=== PATIENT | female | born 1960 | race African-American/Black ===

== ENCOUNTER 2016-11-10 17:56 | Emergency (ER) | payer OTHER ==
[~2016-11-10] VITALS: Ht 160 cm; Wt 90.7 kg
[2016-11-10 18:07] VITALS: BP 146/87
[2016-11-10] MEDS ORDERED: Famotidine 20 MG/ 2ML VIAL IVP ONE (18:15)
[2016-11-10] MEDS ORDERED: Ketorolac 30mg Inj IV ONE (18:15)
[2016-11-10 18:38] LABS: BASOPHILS % (AUTO) 0.9 % (0.0-2.0); EOSINOPHILS % (AUTO) 1.3 % (0.0-3.0); LYMPHOCYTES % (AUTO) 28.7 % (20.0-45.0); MEAN CORPUSCULAR HEMOGLOBIN 30.8 PG (27.0-31.0); MEAN CORPUSCULAR HGB CONC 33.1 G/DL (32.0-36.0); MEAN CORPUSCULAR VOLUME 93 FL (80-99); MEAN PLATELET VOLUME 7.9 FL (6.5-10.1); MONOCYTES % (AUTO) 7.3 % (1.0-10.0); NEUTROPHILS % (AUTO) 61.7 % (45.0-75.0); PLATELET COUNT 304 K/UL (150-450); RED CELL DISTRIBUTION WIDTH 11.5 % (11.6-14.8); WHITE BLOOD COUNT 9.8 K/UL (4.8-10.8)
[2016-11-10 18:50] LABS: PROTHROMBIN TIME 10.2 SEC (9.30-11.50)
[2016-11-10 18:58] LABS: TROPONIN I < 0.30 ng/mL (<=0.30)
[2016-11-10 19:01] LABS: ALANINE AMINOTRANSFERASE 19 U/L (3-33); ALBUMIN/GLOBULIN RATIO 1.3 (1.0-2.7); ANION GAP 16 (5-15); ASPARTATE AMINO TRANSFERASE 18 U/L (5-40); CALCIUM 9.2 mg/dL (8.6-10.2); CARBON DIOXIDE 27 mEQ/L (20-30); CHLORIDE 100 mEQ/L (98-107); CREATININE 0.9 mg/dL (0.5-0.9); GLOMERULAR FILTRATION RATE > 60 mL/min (>60); HEMOLYSIS 2; LIPASE 111 U/L (< 60); POTASSIUM 3.9 mEQ/L (3.4-4.9); SODIUM 143 mEQ/L (135-145); TOTAL PROTEIN 7.6 g/dL (6.6-8.7)
[2016-11-10] MEDS ORDERED: Morphine Sulfate 4mg/ml Inj IVP ONE (19:30)
[2016-11-10 21:00] VITALS: BP_SYST 141; BP_SYST 146; BP_DIAS 84; BP_DIAS 87
[2016-11-10] MEDS ORDERED: NORCO 5-325 TA1 EACH ORAL (21:25)
--- NOTE | 2016-11-12 07:47 | Emergency Room Report ---
History of Present Illness General Chief Complaint: General Complaint Source: Patient Present Illness HPI Patient is a 56-year-old female who presented after having increased upper back pain and vomiting. The patient presented for pain to the mid back area. Pain did not radiate. Patient had associated epigastric pain. She reports having prior history of disc disease in her back. She states that she had not been having any fever. She stated she nonbloody and nonbilious vomiting. She denied any rectal bleeding or black stools. She denied any shortness of breath. Allergies: Coded Allergies: SHELLFISH DERIVED (Verified Allergy, Unknown, 11/10/16) Patient History Past Medical History: see triage record Last Menstrual Period: 1993 Now: No Reviewed Nursing Documentation: PMH: Agreed, PSxH: Agreed Nursing Documentation-PMH Past Medical History: No History, Except For Hx Asthma: Yes Hx COPD: Yes Review of Systems All Other Systems: negative except mentioned in HPI Physical Exam Vital Signs Date Time Temp Pulse Resp B/P Pulse Ox O2 Delivery O2 Flow Rate FiO2 11/10/16 17:59 97.3 85 22 143/91 99 Room Air Sp02 EP Interpretation: reviewed, normal General Appearance: normal inspection, well appearing, no apparent distress, alert, GCS 15 Head: atraumatic ENT: normal ENT inspection, hearing grossly normal, normal voice Neck: normal inspection, full range of motion, supple, no bony tend Respiratory: normal inspection, lungs clear, normal breath sounds, no respiratory distress, no retraction, no wheezing Cardiovascular #1: regular rate, rhythm, no edema Gastrointestinal: normal inspection, normal bowel sounds, non tender, soft, no guarding, no hernia Genitourinary: no CVA tenderness Musculoskeletal: normal inspection, back normal, normal range of motion Neurologic: normal inspection, alert, oriented x3, responsive, biophysics professor III-XII nml as tested, speech normal Psychiatric: normal inspection, judgement/insight normal, mood/affect normal Skin: normal inspection, normal color, no rash Medical Decision Making Diagnostic Impression: Primary Impression: Pancreatitis ER Course Patient presented for abdominal pain. Differential diagnoses included ischemic bowel, appendicitis, perforated viscus, abdominal aortic aneurysm, inferior myocardial infarction, viral gastroenteritis. Because of complexity of patient' s case laboratory testing and imaging studies were ordered. I laboratory testing was notable for elevated lipase. The patient was given pain medications with improvement. The patient was given acid melinda as well as Toradol and morphine. The patient was noted to have a normal white blood count with elevated lipase consistent with acute pancreatitis. The patient's history she doesn't really drink alcohol. Patient was advised alcohol cessation. Patient is advised dietary modifications.The patient is advised to follow up with primary care doctor in 1-2 days. Patient is advised to return if any worsening condition or if any changes in status that are concerning. EKG Diagnostic Results Rate: normal Rhythm: NSR ST Segments: no acute changes Last Vital Signs Date Time Temp Pulse Resp B/P Pulse Ox O2 Delivery O2 Flow Rate FiO2 11/10/16 21:00 97.1 86 20 141/84 99 Room Air Status: improved Disposition: HOME, SELF-CARE Condition: Stable Scripts Hydrocodone Bit/Acetaminophen 5-325* (NORCO 5-325*) 1 Each Tablet 1 TAB ORAL Q6H Y for For Pain, #20 TAB 0 Refills Prov: Franklin Quiñones 11/10/16 Patient Instructions: Acute Pancreatitis Franklin Quiñones Nov 12, 2016 07:47
--- NOTE | 2016-11-15 08:38 | Cardiology Report ---
APPROVED REPORT EKG Measurement Heart [id number] Normal sinus rhythm Cannot rule out Anterior infarct, age undetermined Abnormal ECG
== END 2016-11-10 21:00 | disposition home or self-care (01) ==
LOC: EMR 18:30
DX: K85.90 Acute pancreatitis without necrosis or infection, unspecified (principal); J44.9 Chronic obstructive pulmonary disease, unspecified; J45.909 Unspecified asthma, uncomplicated; Z91.013 Allergy to seafood
CPT/HCPCS: 36415; 80053; 83690; 84484; 85025; 85610; 85730; 93005; 96360; 96374; 96375; 99283; J1885; J2270; J2405; J7040; S0028

== ENCOUNTER 2016-11-15 10:41 | Emergency (ER) | payer OTHER ==
[~2016-11-15] VITALS: Ht 160 cm; Wt 95.3 kg
[~2016-11-15 10:41] MED LIST: NORCO 5-325 TA1 EACH ORAL
[2016-11-15] MEDS ORDERED: Morphine Sulfate 4mg/ml Inj IVP ONE (11:45)
[2016-11-15] MEDS ORDERED: Ketorolac 30mg Inj IV ONE (11:45)
[2016-11-15 12:30] VITALS: BP 106/78
[2016-11-15 13:14] LABS: APPEARANCE,URINE CLEAR; KETONES,URINE 1+ (NEGATIVE); LEUKOCYTE ESTERASE ,URINE NEGATIVE (NEGATIVE); NITRITE,URINE NEGATIVE (NEGATIVE); PH,URINE 6.5 (4.5-8.0); PROTEIN,URINE NEGATIVE (NEGATIVE); UROBILINOGEN,URINE NORMAL MG/DL (0.0-1.0)
[2016-11-15 13:15] LABS: BASOPHILS % (AUTO) 1.1 % (0.0-2.0); EOSINOPHILS % (AUTO) 1.9 % (0.0-3.0); LYMPHOCYTES % (AUTO) 32.7 % (20.0-45.0); MEAN CORPUSCULAR HEMOGLOBIN 31.7 PG (27.0-31.0); MEAN CORPUSCULAR HGB CONC 33.7 G/DL (32.0-36.0); MEAN CORPUSCULAR VOLUME 94 FL (80-99); MEAN PLATELET VOLUME 8.5 FL (6.5-10.1); MONOCYTES % (AUTO) 8.4 % (1.0-10.0); PLATELET COUNT 268 K/UL (150-450); RED BLOOD COUNT 5.24 M/UL (4.20-5.40); RED CELL DISTRIBUTION WIDTH 11.6 % (11.6-14.8); WHITE BLOOD COUNT 6.7 K/UL (4.8-10.8)
[2016-11-15 13:20] LABS: ALANINE AMINOTRANSFERASE 24 U/L (3-33); ALBUMIN/GLOBULIN RATIO 1.3 (1.0-2.7); ANION GAP 16 (5-15); ASPARTATE AMINO TRANSFERASE 25 U/L (5-40); CALCIUM 9.6 mg/dL (8.6-10.2); CARBON DIOXIDE 28 mEQ/L (20-30); CHLORIDE 97 mEQ/L (98-107); CREATININE 0.9 mg/dL (0.5-0.9); GLOMERULAR FILTRATION RATE > 60 mL/min (>60); HEMOLYSIS 26; LIPASE 30 U/L (< 60); POTASSIUM 4.2 mEQ/L (3.4-4.9); SODIUM 141 mEQ/L (135-145)
[2016-11-15] MEDS ORDERED: IBUPROFEN600 MG ORAL (13:41)
[2016-11-15] MEDS ORDERED: NORCO 5-325 TA1 EACH ORAL (13:41)
[2016-11-15 13:45] LABS: BILIRUBIN,DIRECT 0.2 mg/dL (0.1-0.3)
[2016-11-15 13:55] VITALS: BP 106/78
--- NOTE | 2016-11-15 17:27 | Emergency Room Report ---
History of Present Illness General Chief Complaint: Back Pain-No Injury Source: Patient Present Illness HPI 56-year-old female who presents ED complaining of back pain x3 days. Denies trauma. Has chronic history of back pain. Pain is right-sided, sharp, 10 out of 10. No other aggravating or relieving factors. Denies dysuria or hematuria. Denies nausea or vomiting. Denies any abdominal pain. Patient is concerned because she was here 5 days ago and was told she had pancreatitis. No aggravating relieving factors. Denies any other associated symptoms Allergies: Coded Allergies: SHELLFISH DERIVED (Verified Allergy, Unknown, 11/10/16) Patient History Past Medical History: GERD Past Surgical History: none Pertinent Family History: none Social History: Denies: alcohol use, drug use, smoking Last Menstrual Period: n/a Now: No Immunizations: UTD Reviewed Nursing Documentation: PMH: Agreed, PSxH: Agreed Nursing Documentation-PMH Past Medical History: No History, Except For Hx Cardiac Problems: Yes - mi jun 2016 Hx Asthma: Yes Hx COPD: Yes Hx Gastrointestinal Problems: Yes - gerd Review of Systems All Other Systems: negative except mentioned in HPI Physical Exam Vital Signs Date Time Temp Pulse Resp B/P Pulse Ox O2 Delivery O2 Flow Rate FiO2 11/15/16 11:13 97.2 68 16 107/72 98 Room Air Sp02 EP Interpretation: reviewed, normal General Appearance: alert, GCS 15, non-toxic, obese Head: normocephalic, atraumatic Eyes: bilateral eye PERRL, bilateral eye normal inspection ENT: hearing grossly normal, normal pharynx, no angioedema, normal voice Neck: full range of motion, supple/symm/no masses Respiratory: chest non-tender, lungs clear, normal breath sounds, speaking full sentences Cardiovascular #1: regular rate, rhythm, no edema Cardiovascular #2: 2+ carotid (R), 2+ carotid (L), 2+ radial (R), 2+ radial (L) , 2+ dorsalis pedis (R), 2+ dorsalis pedis (L) Gastrointestinal: normal bowel sounds, non tender, soft, non-distended, no guarding, no rebound Rectal: deferred Genitourinary: normal inspection, no CVA tenderness, no vertebral tenderness Musculoskeletal: back normal, gait/station normal, normal range of motion, non- tender, tender - paraspinal lumbar tenderness Neurologic: alert, oriented x3, responsive, motor strength/tone normal, sensory intact, speech normal Psychiatric: judgement/insight normal, memory normal, mood/affect normal, no suicidal/homicidal ideation Reflexes: 3+ bicep (R), 3+ bicep (L), 3+ tricep (R), 3+ tricep (L), 3+ knee (R) , 3+ knee (L) Skin: normal color, no rash, warm/dry, well hydrated Lymphatic: no adenopathy Medical Decision Making Diagnostic Impression: Primary Impression: Back pain Qualified Codes: M54.5 - Low back pain ER Course Hospital Course 56-year-old female presents to ED with right-sided back pain/flank pain. Recently diagnosed with pancreatitis differential diagnosis: pancreatitis, kidney stone, UTI, back pain Clinical course Patient placed on stretcher. On environmental monitoring specialist. After initial history and physical I ordered labs, UA pain meds Labs - no leukocytosis, no electrolyte abnormalities, LFTs normal, lipase normal , UA unremarkable Upon reassessment, patient states pain has improved. Pain on likely due to kidney stone or UTI. No evidence of pancreatitis. Pain is muscular I feel this is a highly complex case requiring extensive working including EKG/ Rhythm strip, Xray/CT/US, Blood/urine lab work, repeat exams while in ED, and administration of strong opiates/narcotics for pain control, admission to hospital or close patient follow up. Diagnosis - back pain Stable and discharged to home with prescriptions for motrin, norco. Followup with PMD. Return to ED if symptoms recur or worsen Labs Test 11/15/16 12:10 11/15/16 12:25 Urine Color Yellow Urine Appearance Clear Urine pH 6.5 (4.5-8.0) Urine Specific [place] 1.010 (1.005-1.035) Urine Protein Negative (NEGATIVE) Urine Glucose (UA) Negative (NEGATIVE) Urine Ketones 1+ (NEGATIVE) Urine Occult Blood Negative (NEGATIVE) Urine Nitrite Negative (NEGATIVE) Urine Bilirubin Negative (NEGATIVE) Urine Urobilinogen Normal MG/DL (0.0-1.0) Urine Leukocyte Esterase Negative (NEGATIVE) White Blood Count 6.7 K/UL (4.8-10.8) Red Blood Count 5.24 M/UL (4.20-5.40) Hemoglobin 16.6 G/DL (12.0-16.0) Hematocrit 49.3 % (37.0-47.0) Mean Corpuscular Volume 94 FL (80-99) Mean Corpuscular Hemoglobin 31.7 PG (27.0-31.0) Mean Corpuscular Hemoglobin Concent 33.7 G/DL (32.0-36.0) Red Cell Distribution Width 11.6 % (11.6-14.8) Platelet Count 268 K/UL (150-450) Mean Platelet Volume 8.5 FL (6.5-10.1) Neutrophils (%) (Auto) 56.0 % (45.0-75.0) Lymphocytes (%) (Auto) 32.7 % (20.0-45.0) Monocytes (%) (Auto) 8.4 % (1.0-10.0) Eosinophils (%) (Auto) 1.9 % (0.0-3.0) Basophils (%) (Auto) 1.1 % (0.0-2.0) Sodium Level 141 mEQ/L (135-145) Potassium Level 4.2 mEQ/L (3.4-4.9) Chloride Level 97 mEQ/L (98-107) Carbon Dioxide Level 28 mEQ/L (20-30) Anion Gap 16 (5-15) Blood Urea Nitrogen 10 mg/dL (7-23) Creatinine 0.9 mg/dL (0.5-0.9) Estimat Glomerular Filtration Rate > 60 mL/min (>60) Glucose Level 80 mg/dL (74-106) Calcium Level 9.6 mg/dL (8.6-10.2) Total Bilirubin 1.1 mg/dL (0.0-1.2) Direct Bilirubin 0.2 mg/dL (0.1-0.3) Aspartate Amino Transf (AST/SGOT) 25 U/L (5-40) Alanine Aminotransferase (ALT/SGPT) 24 U/L (3-33) Alkaline Phosphatase 81 U/L (35-104) Total Protein 8.0 g/dL (6.6-8.7) Albumin 4.6 g/dL (3.5-5.2) Globulin 3.4 g/dL Albumin/Globulin Ratio 1.3 (1.0-2.7) Lipase 30 U/L (< 60) Last Vital Signs Date Time Temp Pulse Resp B/P Pulse Ox O2 Delivery O2 Flow Rate FiO2 11/15/16 13:55 97.2 80 18 106/78 98 Room Air Status: improved Disposition: HOME, SELF-CARE Condition: Stable Scripts Hydrocodone Bit/Acetaminophen 5-325* (NORCO 5-325*) 1 Each Tablet 1 TAB ORAL Q6H Y for For Pain, #10 TAB 0 Refills Prov: LEANNE ROCHE M.D. 11/15/16 Ibuprofen* (MOTRIN*) 600 Mg Tablet 600 MG ORAL Q8H Y for For Pain, #30 TAB 0 Refills Prov: LEANNE ROCHE M.D. 11/15/16 Referrals: OKSANA VOSS,REFERRING (PCP) Patient Instructions: Back Pain, Adult LEANNE ROCHE M.D. Nov 15, 2016 17:27
== END 2016-11-15 13:55 | disposition home or self-care (01) ==
LOC: EMR 11:49
DX: M54.5 Low back pain (principal); I25.2 Old myocardial infarction; Z87.19 Personal history of other diseases of the digestive system; J44.9 Chronic obstructive pulmonary disease, unspecified; J45.909 Unspecified asthma, uncomplicated; Z91.013 Allergy to seafood
CPT/HCPCS: 36415; 80053; 81003; 82248; 83690; 85025; 96374; 96375; 99284; J1885; J2270

== ENCOUNTER 2016-12-02 14:36 | Emergency (ER) | payer OTHER ==
[~2016-12-02] VITALS: Ht 160 cm; Wt 95.3 kg
[~2016-12-02 14:36] MED LIST changes: +IBUPROFEN600 MG ORAL
[2016-12-02] MEDS ORDERED: Ketorolac 60mg Inj ONE (15:24)
[2016-12-02 15:38] VITALS: BP 131/86
[2016-12-02] MEDS ORDERED: Ketorolac 60mg Inj IM ONE (15:45)
--- NOTE | 2016-12-02 16:45 | Diagnostic Imaging Report ---
Indication: Injury, pain Technique: 3 views of the lumbar spine Comparison: None Findings:Bony alignment is normal. Vertebral body heights are preserved. Disc spaces are preserved. There are minimal anterior degenerative proliferative changes. No acute fractures. No dislocations. Pedicles are intact. Sacral arches are preserved. Sacroiliac joint spaces are preserved Impression:No acute process
--- NOTE | 2016-12-02 17:21 | Emergency Room Report ---
History of Present Illness General Chief Complaint: Back Pain-No Injury Source: Patient Present Illness HPI Patient complains of low back pain for 4 days. States that she has chronic back pain and takes [place] for her pain which has not been helping her new flair up of back pain. States pain is worse with movement and with palpation and feels better with heat and rest. Denies any recent injury or any urinary symptoms.Denies any lower extremity weakness, incontinence, foot drop, saddle anesthesia, numbness, or paralysis. Allergies: Coded Allergies: SHELLFISH DERIVED (Verified Allergy, Unknown, 11/10/16) Patient History Past Medical History: see triage record Pertinent Family History: none Now: No Immunizations: UTD Reviewed Nursing Documentation: PMH: Agreed, PSxH: Agreed Nursing Documentation-PMH Past Medical History: No History, Except For Hx Cardiac Problems: Yes - [place] JUN 2016 Hx Hypertension: No Hx Pacemaker: No Hx Asthma: Yes Hx COPD: Yes Hx Diabetes: No Hx Cancer: No Hx Gastrointestinal Problems: Yes - GERD Hx Dialysis: No History Of Psychiatric Problem: No Hx Neurological Problems: No Hx Cerebrovascular Accident: No Hx Seizures: No Review of Systems All Other Systems: negative except mentioned in HPI Physical Exam Vital Signs Date Time Temp Pulse Resp B/P Pulse Ox O2 Delivery O2 Flow Rate FiO2 12/02/16 15:05 97.9 96 14 129/88 95 12/02/16 15:38 Room Air Sp02 EP Interpretation: reviewed, normal General Appearance: no apparent distress, alert, GCS 15, non-toxic Head: normocephalic, atraumatic Eyes: bilateral eye PERRL, bilateral eye normal inspection Neck: full range of motion, supple/symm/no masses Respiratory: chest non-tender, lungs clear, normal breath sounds, speaking full sentences Cardiovascular #1: regular rate, rhythm, no edema Gastrointestinal: normal bowel sounds, non tender, soft, non-distended, no guarding, no rebound Genitourinary: normal inspection, no CVA tenderness Musculoskeletal: back normal, normal range of motion, other - Antalgic gait, tender - bilaterl perilumar tenderness with defined muscle spasm / trigger point in right lumbar / gluteal region. Neurologic: alert, oriented x3, responsive, motor strength/tone normal, sensory intact, speech normal Reflexes: 2+ knee (R), 2+ knee (L) Skin: normal color, no rash, warm/dry, well hydrated Lymphatic: no adenopathy Medical Decision Making PA Attestation Dr. Patel is my supervising physician with whom patient management has been discussed with. Diagnostic Impression: Primary Impression: Muscle spasm of back Additional Impression: Lumbago without sciatica Qualified Codes: M54.5 - Low back pain ER Course Pt. presents to the ED c/o low back pain Ddx considered but are not limited to sciatica, muscle spasm, trauma, transverse mylenitis Vital signs: are WNL, pt. is afebrile H&PE are most consistent with Muscle spasm ORDERS: XR LS ED INTERVENTIONS: Toradol 60mg, 4mg Morphine DISCHARGE: At this time pt. is stable for d/c to home. Will provide printed patient care instructions, and any necessary prescriptions. Care plan and follow up instructions have been discussed with the patient prior to discharge. Other X-Ray Diagnostic Results Other X-Ray Diagnostic Results : X-Ray Ordered: LS Spine Date: Dec 02, 2016 EP Interpretation: No Findings: no fractures Number of Views: 3 Last Vital Signs Date Time Temp Pulse Resp B/P Pulse Ox O2 Delivery O2 Flow Rate FiO2 12/02/16 19:40 83 16 120/65 99 Room Air 12/02/16 19:39 98.2 Status: improved Disposition: HOME, SELF-CARE Condition: Improved Scripts Methocarbamol* (ROBAXIN-750*) 750 Mg Tablet 750 MG PO TID, #30 TAB 0 Refills Prov: SABRY,TAMEEM P.A. 12/02/16 Naproxen* (NAPROSYN*) 500 Mg Tablet 500 MG ORAL TWICE A DAY, #30 TAB Prov: SABEDNA,TAMEEM P.A. 12/02/16 Referrals: OKSANA VOSS,REFERRING (PCP) Patient Instructions: Muscle Cramps and Spasms, Trigger Point Injection Additional Instructions: Take medication as directed. Advise patient to use RICE therapy and avoid exercises for the next 2-3 weeks to help rest the leg. Patient instructed to massage the muscles that are tight or tense, put ice for 5-7 minutes or a frozen bag of peas or cold gel pack on the area for 20 minutes at a time, a few times a day, put heat on the area to reduce pain and stiffness by either taking a hot shower or hot bath, or put a hot towel on the area for no more than 20 minutes at a time. Patient instructed to not use anything too hot that could burn your skin.Advised patient to go to the ER immediately if she experiences any new LE numbness, weakness, irretractible back pain, or if any paralysis, urinary, or bowel incontinence begins. LAZARUS HARMAN Dec 02, 2016 17:21
[2016-12-02 18:49] LABS: APPEARANCE,URINE CLEAR; KETONES,URINE NEGATIVE (NEGATIVE); LEUKOCYTE ESTERASE ,URINE NEGATIVE (NEGATIVE); NITRITE,URINE NEGATIVE (NEGATIVE); PH,URINE 6 (4.5-8.0); PROTEIN,URINE NEGATIVE (NEGATIVE); UROBILINOGEN,URINE NORMAL MG/DL (0.0-1.0)
[2016-12-02] MEDS ORDERED: Morphine Sulfate 4mg/ml Inj IM ONE (19:00)
[2016-12-02 19:11] LABS: WBC,URINE 0 /HPF (0 - 2)
[2016-12-02 19:12] LABS: AMORPHOUS SEDIMENT,UR MODERATE /LPF; BACTERIA,URINE MODERATE /HPF; SQUAMOUS EPITHELIAL CELL,UR OCCASIONAL /LPF (NONE/OCC)
[2016-12-02] MEDS ORDERED: ROBAXIN-750750 MG PO (19:14)
[2016-12-02] MEDS ORDERED: NAPROSYN500 M1 ORAL (19:14)
[2016-12-02 19:39] VITALS: BP 125/68
[2016-12-02 19:40] VITALS: BP 120/65
== END 2016-12-02 19:42 | disposition home or self-care (01) ==
LOC: EMR 16:47
DX: M62.830 Muscle spasm of back (principal); M54.5 Low back pain; G89.29 Other chronic pain; Z91.013 Allergy to seafood; J44.9 Chronic obstructive pulmonary disease, unspecified; J45.909 Unspecified asthma, uncomplicated; K21.9 Gastro-esophageal reflux disease without esophagitis
CPT/HCPCS: 72020; 81001; 87086; 96372; 99284; J2270

== ENCOUNTER 2017-05-30 18:55 | Emergency (ER) | payer OTHER ==
[~2017-05-30] VITALS: Ht 160 cm; Wt 95.3 kg
[~2017-05-30 18:55] MED LIST changes: +NAPROSYN500 M1 ORAL; +ROBAXIN-750750 MG PO
[2017-05-30] MEDS ORDERED: NS Irrig 1000ml 1,000 ML IRRIG ONE (20:00)
[2017-05-30] MEDS ORDERED: Morgan Lens TOPIC ONE (20:00)
[2017-05-30] MEDS ORDERED: Tetracaine 0.5% Opth Soln LEFT EYE ONE (20:00)
[2017-05-30] MEDS ORDERED: Fluorescein Strips ONE (20:22)
[2017-05-30] MEDS ORDERED: Fluorescein Strips LEFT EYE ONE (20:30)
[2017-05-30 21:00] VITALS: BP 115/72
[2017-05-30] MEDS ORDERED: OCUFLOX5 ML OP (21:27)
--- NOTE | 2017-05-30 23:55 | Emergency Room Report ---
History of Present Illness General Chief Complaint: Eye Problems Source: Patient Present Illness HPI The patient is a 56-year-old female presenting for left eye pain. The patient states that she put a drop of Super Glue in the eye 2 hours prior to arrival on accident. She stopped this was regular eyedrops. Pain is now 7/10 burning sensation and does not radiate from the left eye. She denies any changes in vision. She states that she removed much of the Super Glue herself at home with her fingers. She denies any other symptoms Allergies: Coded Allergies: SHELLFISH DERIVED (Verified Allergy, Unknown, 11/10/16) Patient History Past Medical History: see triage record Pertinent Family History: none Last Menstrual Period: Post Reviewed Nursing Documentation: PMH: Agreed, PSxH: Agreed Nursing Documentation-PMH Hx Cardiac Problems: Yes - [place] JUN 2016 Hx Hypertension: No Hx Pacemaker: No Hx Asthma: Yes Hx COPD: Yes Hx Diabetes: No Hx Cancer: No Hx Dialysis: No Hx Neurological Problems: No Hx Cerebrovascular Accident: No Hx Seizures: No Review of Systems All Other Systems: negative except mentioned in HPI Physical Exam Vital Signs Date Time Temp Pulse Resp B/P (MAP) Pulse Ox O2 Delivery O2 Flow Rate FiO2 05/30/17 19:03 98.1 86 17 112/76 95 Room Air Sp02 EP Interpretation: reviewed, normal General Appearance: no apparent distress, alert, GCS 15, non-toxic Head: normocephalic, atraumatic Eyes: left eye fluoroscene uptake, left eye other - injection. Particles seen on conjunctiva over central eye, bilateral eye PERRL, bilateral eye EOMI ENT: hearing grossly normal, normal pharynx, no angioedema, normal voice Musculoskeletal: back normal, gait/station normal, normal range of motion, non- tender Neurologic: alert, oriented x3, responsive, motor strength/tone normal, sensory intact, speech normal Psychiatric: judgement/insight normal, memory normal, mood/affect normal, no suicidal/homicidal ideation Skin: normal color, no rash, warm/dry, well hydrated Medical Decision Making PA Attestation Dr. Perez is my supervising physician. Patient management was discussed with my supervising physician Diagnostic Impression: Primary Impression: Conjunctival abrasion Qualified Codes: S05.02XA - Injury of conjunctiva and corneal abrasion without foreign body, left eye, initial encounter Additional Impression: Foreign body in eye Qualified Codes: T15.92XA - Foreign body on external eye, part unspecified, left eye, initial encounter ER Course The patient is a 56-year-old female presenting for superglue of the left eye Differential diagnosis considered not limited to: Foreign body of the eye, conjunctivitis, conjunctival abrasion, corneal abrasion, among others Physical exam: Left eye is patent. No glue on the eyelids. Left eye is injected. There are small, centrally located particles of glue on conjunctiva. Race Car Driver Dr. Valencia was consulted and saw the patient. Tetracaine and proparacaine were used as well as a slit lamp. He removed the remaining particles of glue and found that there were areas of uptake. The patient will be treated with ophthalmic antibiotics as a precaution. She was advised to followup with epidemiology internship as soon as possible. She agrees with this plan. ER precautions are given Last Vital Signs Date Time Temp Pulse Resp B/P (MAP) Pulse Ox O2 Delivery O2 Flow Rate FiO2 05/30/17 19:03 98.1 86 17 112/76 95 Room Air Status: improved Disposition: HOME, SELF-CARE Condition: Improved Scripts Ofloxacin (OCUFLOX) 5 Ml Drops 1 DROP OP QID, #5 ML Prov: QUETA BALBUENA 05/30/17 Patient Instructions: Eye Foreign Body Additional Instructions: I discussed my findings with the patient. All questions and concerns have been answered. Treatment and medication compliance have been addressed. I advised the patient that they need to follow up with PMD in 3-5 days. Return to ED if symptoms worsen, new symptoms arise, or if needed for any reason. Patient verbalized understanding of discharge instructions. The patient has consulted with epidemiology internship Dr. Valencia in the ER. She will followup with epidemiology internship as advised. Return to emergency department if he experienced changes in vision. ER precautions given QUETA BALBUENA May 30, 2017 23:55
== END 2017-05-30 21:00 | disposition home or self-care (01) ==
LOC: EMR 19:40
DX: T15.02XA Foreign body in cornea, left eye, initial encounter (principal); X58.XXXA Exposure to other specified factors, initial encounter; Y92.89 Other specified places as the place of occurrence of the external cause; J44.9 Chronic obstructive pulmonary disease, unspecified
CPT/HCPCS: 99284; Z7502

== ENCOUNTER 2018-09-26 07:50 | Emergency (ER) | payer OTHER ==
[~2018-09-26] VITALS: Ht 162.6 cm; Wt 99.8 kg
[~2018-09-26 07:50] MED LIST changes: +OCUFLOX5 ML OP
[2018-09-26 08:00] VITALS: BP 122/73
[2018-09-26] MEDS ORDERED: Aspirin Baby 81mg ORAL ONE (08:00)
--- NOTE | 2018-09-26 08:00 | NUR ---
ED Nurse Note: Pt AAO x4 present to ER c/o chest pain started about 2 weeks ago and pain level 7/10, radiating to Lt shoulder. Pt is currently c/o N/V. VSS.
[2018-09-26 08:24] LABS: BASOPHILS % (AUTO) 0.9 % (0.0-2.0); EOSINOPHILS % (AUTO) 2.6 % (0.0-3.0); HEMATOCRIT 49.9 % (37.0-47.0); LYMPHOCYTES % (AUTO) 35.3 % (20.0-45.0); MEAN CORPUSCULAR VOLUME 92 FL (80-99); NEUTROPHILS % (AUTO) 53.2 % (45.0-75.0); PLATELET COUNT 255 K/UL (150-450); RED BLOOD COUNT 5.44 M/UL (4.20-5.40); RED CELL DISTRIBUTION WIDTH 11.1 % (11.6-14.8); WHITE BLOOD COUNT 6.8 K/UL (4.8-10.8)
[2018-09-26] MEDS ORDERED: Mylanta II UD 30ml ORAL ONE (08:30)
--- NOTE | 2018-09-26 08:39 | Emergency Room Report ---
History of Present Illness General Chief Complaint: Chest Pain Source: Patient Present Illness HPI States that she has had left arm pain for the past 2 weeks. She states that her pain has been persistent. Although, she states that it has become much worse over the past few days. She states at night she has left leg pain. She was also concerned because she felt some numbness in her face on Tuesday. She reports nausea but no vomiting. Denies chest pain. She does get intermittent upper abdominal pain. She does not have any abdominal pain at this time. She denies cough or congestion. She denies shortness of breath. She denies fever or chills. She denies sore throat or neck pain. She denies headache. She admits that she is very anxious and has a lot of stress. She has no other complaints. Allergies: Coded Allergies: SHELLFISH DERIVED (Verified Allergy, Unknown, 11/10/16) Patient History Past Medical History: see triage record, DC, CAD, asthma, GERD, psych hx Social History: Denies: smoking, alcohol use, drug use Now: No Reviewed Nursing Documentation: PMH: Agreed; PSxH: Agreed Nursing Documentation-PMH Past Medical History: No History, Except For Hx Cardiac Problems: Yes - [place] JUN 2016 Hx Hypertension: No Hx Pacemaker: No Hx Asthma: Yes Hx COPD: Yes Hx Diabetes: No Hx Cancer: No Hx Dialysis: No Hx Neurological Problems: No Hx Cerebrovascular Accident: No Hx Seizures: No Review of Systems All Other Systems: negative except mentioned in HPI Physical Exam Vital Signs Date Time Temp Pulse Resp B/P (MAP) Pulse Ox O2 Delivery O2 Flow Rate FiO2 09/26/18 07:52 97.5 65 20 108/81 98 Room Air 09/26/18 08:00 97 Sp02 EP Interpretation: reviewed, normal General Appearance: no apparent distress, alert, GCS 15, non-toxic Head: normocephalic, atraumatic Eyes: bilateral eye normal inspection, bilateral eye PERRL ENT: hearing grossly normal, normal pharynx, no angioedema, normal voice Neck: full range of motion, supple/symm/no masses Respiratory: chest non-tender, lungs clear, normal breath sounds, no respiratory distress, no retraction, no accessory muscle use, speaking full sentences Cardiovascular #1: regular rate, rhythm, no edema Gastrointestinal: normal bowel sounds, non tender, soft, non-distended, no guarding, no rebound Rectal: deferred Musculoskeletal: back normal, gait/station normal, normal range of motion, non- tender Neurologic: alert, oriented x3, responsive, motor strength/tone normal, sensory intact, speech normal Psychiatric: judgement/insight normal, memory normal, mood/affect normal, no suicidal/homicidal ideation Skin: normal color, no rash, warm/dry, well hydrated Medical Decision Making Diagnostic Impression: Primary Impression: Arm pain Additional Impressions: Arm paresthesia, left Cervical radiculopathy ER Course The patient is low risk L. arm pain and parasthesias. I suspect this patient has cervical radiculopathy or rotator cuff impingement syndrome. I considered PE, PTX, acute coronary syndrome, aortic dissection, pneumonia which is unlikely given hx, CE, CXR. Low risk PERC and Wells. Negative work-up to include Cardiac enzymes, CXR, EKG. Given history and PE I do not feel that this patient needs further evaluation or admission to the hospital at this time. The patient was instructed to follow-up closely with their PCP and close return precautions were given. Laboratory Tests Test 09/26/18 08:00 09/26/18 08:10 White Blood Count 6.8 K/UL (4.8-10.8) Red Blood Count 5.44 M/UL (4.20-5.40) H Hemoglobin 17.0 G/DL (12.0-16.0) H Hematocrit 49.9 % (37.0-47.0) H Mean Corpuscular Volume 92 FL (80-99) Mean Corpuscular Hemoglobin 31.3 PG (27.0-31.0) H Mean Corpuscular Hemoglobin Concent 34.2 G/DL (32.0-36.0) Red Cell Distribution Width 11.1 % (11.6-14.8) L Platelet Count 255 K/UL (150-450) Mean Platelet Volume 7.6 FL (6.5-10.1) Neutrophils (%) (Auto) 53.2 % (45.0-75.0) Lymphocytes (%) (Auto) 35.3 % (20.0-45.0) Monocytes (%) (Auto) 8.0 % (1.0-10.0) Eosinophils (%) (Auto) 2.6 % (0.0-3.0) Basophils (%) (Auto) 0.9 % (0.0-2.0) Sodium Level 139 MMOL/L (136-145) Potassium Level 3.7 MMOL/L (3.5-5.1) Chloride Level 102 MMOL/L (98-107) Carbon Dioxide Level 27 MMOL/L (21-32) Anion Gap 10 mmol/L (5-15) Blood Urea Nitrogen 10 mg/dL (7-18) Creatinine 0.9 MG/DL (0.55-1.30) Estimate Glomerular Filtration Rate > 60 mL/min (>60) Glucose Level 104 MG/DL (74-106) Calcium Level 9.3 MG/DL (8.5-10.1) Total Bilirubin 0.9 MG/DL (0.2-1.0) Aspartate Amino Transferase (AST) 24 U/L (15-37) Alanine Aminotransferase (ALT) 27 U/L (12-78) Alkaline Phosphatase 92 U/L (46-116) Total Creatine Kinase 82 U/L (26-308) Creatine Kinase MB < 0.5 NG/ML (0.0-3.6) Creatine Kinase MB Relative Index 0.6 Troponin I 0.002 ng/mL (0.000-0.056) Total Protein 8.3 G/DL (6.4-8.2) H Albumin 3.9 G/DL (3.4-5.0) Globulin 4.4 g/dL Albumin/Globulin Ratio 0.9 (1.0-2.7) L Urine Opiates Screen Positive (NEGATIVE) H Urine Barbiturates Screen Negative (NEGATIVE) Phencyclidine (PCP) Screen Negative (NEGATIVE) Urine Amphetamines Screen Negative (NEGATIVE) Urine Benzodiazepines Screen Negative (NEGATIVE) Urine Cocaine Screen Negative (NEGATIVE) Urine Marijuana (THC) Screen Positive (NEGATIVE) H EKG Diagnostic Results Rate: normal Rhythm: NSR ST Segments: no acute changes Rhythm Strip Diag. Results EP Interpretation: yes Rate: 60's Rhythm: NSR, no PVC's, no ectopy Chest X-Ray Diagnostic Results Chest X-Ray Diagnostic Results : Chest X-Ray Ordered: Yes # of Views/Limited/Complete: 1 View Indication: Other - L. arm pain EP Interpretation: Yes Interpretation: no consolidation, no effusion, no pneumothorax, no acute cardiopulmonary disease Impression: No acute disease Electronically Signed by: Mellisa Perez DO CT/MRI/US Diagnostic Results CT/MRI/US Diagnostic Results : Imaging Test Ordered: CT head Impression No acute findings. Specifically no intracranial bleed, mass effect or edema. See official report. Last Vital Signs Date Time Temp Pulse Resp B/P (MAP) Pulse Ox O2 Delivery O2 Flow Rate FiO2 09/26/18 08:00 97.7 64 22 122/73 94 Room Air 09/26/18 08:00 97 Status: improved Disposition: HOME, SELF-CARE Condition: Improved Referrals: NON PHYSICIAN (PCP) Mellisa Perez DO Sep 26, 2018 08:39
[2018-09-26 08:41] LABS: ANION GAP 10 mmol/L (5-15); BLOOD UREA NITROGEN 10 mg/dL (7-18); CALCIUM 9.3 MG/DL (8.5-10.1); CARBON DIOXIDE 27 MMOL/L (21-32); CHLORIDE 102 MMOL/L (98-107); CREATININE 0.9 MG/DL (0.55-1.30); POTASSIUM 3.7 MMOL/L (3.5-5.1); SODIUM 139 MMOL/L (136-145)
[2018-09-26] MEDS ORDERED: ACETAMINOPHEN-1 EAC1 ORAL ×2 (08:47→10:33)
[2018-09-26] MEDS ORDERED: ASPIR 8181 MG ORAL (08:47)
[2018-09-26] MEDS ORDERED: GABAPENTIN600 MG ORAL (08:47)
[2018-09-26] MEDS ORDERED: SERTRALINE HCL50 MG ORAL (08:47)
[2018-09-26 08:56] LABS: ALANINE AMINOTRANSFERASE 27 U/L (12-78); ALBUMIN 3.9 G/DL (3.4-5.0); ALBUMIN/GLOBULIN RATIO 0.9 (1.0-2.7); ALKALINE PHOSPHATASE 92 U/L (46-116); ASPARTATE AMINO TRANSFERASE 24 U/L (15-37); BILIRUBIN,TOTAL 0.9 MG/DL (0.2-1.0); CKMB < 0.5 NG/ML (0.0-3.6); CREATINE KINASE 82 U/L (26-308)
--- NOTE | 2018-09-26 09:03 | NUR ---
ED Nurse Note: Pt reported few more medications she is currently taking at home and it was updated on medication reconciliation by nurse.
--- NOTE | 2018-09-26 09:18 | NUR ---
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 Pt was asked to remove necklaces and she was told it is ok to keep the rings on her. Pt asked nurse to help her to unhook the necklaces and helped her in front of another nurse and Cole and put 2 necklaces in the bag and sealed, put her label on it in front of pt.
--- NOTE | 2018-09-26 09:26 | Diagnostic Imaging Report ---
Indication: Headache Technique: Contiguous 5 mm thick transaxial imaging of the head obtained in a Siemens Sensation [address] scanner. Soft tissue and bone windows generated. Automatic Exposure Control was utilized. Total Dose length Product (DLP): 1340.[address] Dose Index Volume (CTDIvol): 70.38 mGy Comparison: none Findings: The size and configuration of the cortical sulci, basal cisterns, and ventricles are within normal limits for age. There is no mass effect, midline shift, or edema identified. There is no evidence of acute hemorrhage or abnormal intra-axial or extra-axial fluid collections. The bones and soft tissues are unremarkable. Impression: No mass effect, edema or acute bleed. The CT scanner at [facility] is accredited by the [employer] and the scans are performed using dose optimization techniques as appropriate to a performed exam including Automatic Exposure control.
[2018-09-26 10:01] VITALS: BP 110/73
--- NOTE | 2018-09-26 10:03 | NUR ---
ED Nurse Note: Pt stable, sleeping in bed waiting for the imaging and lab results.
--- NOTE | 2018-09-26 10:16 | NUR ---
ED Nurse Note: Pt woke up and reported chest pain level 8/10 and radiating to Lt shoulder. Reported to MD.
[2018-09-26] MEDS ORDERED: Tylenol #3 tab (300mg/30mg) ORAL ONE (10:30)
[2018-09-26] MEDS ORDERED: IBUPROFEN600 MG ORAL (10:33)
[2018-09-26] MEDS ORDERED: LIDODERM700 M1 TOPIC (10:33)
--- NOTE | 2018-09-26 11:20 | NUR ---
ED Nurse Note: Ptyt Addendum: 09/26/18 at 1126 by NAVEEN ED Nurse Note: Pt was cleared to be discharged home by SANA. Pt stable with chest pain level down to 4/10, VSS, able to ambulate. Received discharge instruction and prescriptions. Verbalized understanding back to nurse. Addendum: 09/26/18 at 1244 by NAVEEN Amendment undone in EDM - 09/26/18 at 1637 by NAVEEN ED Nurse Note: Pt AAO x4 present to ER c/o chest pain started about 2 weeks ago and pain level 7/10, radiating to Lt shoulder. Pt is currently c/o N/V. VSS.
[2018-09-26 11:21] VITALS: BP 103/72
--- NOTE | 2018-09-26 12:40 | NUR ---
ED Nurse Note: After pt received discharge instruction and signed on the discharge agreement paper, pt called nurse to the bedside. The yellow belonging bag which contained her 2 necklaces were opened by pt already and she was claiming that her heart charm in one of the necklaces is gone missing. Nurse told pt that no charm was noted when it was removed by pt's request earlier and it was placed in the bag in front of pt without being out of pt's sight. Pt continously claimed that she lost her charm and refused to leave. Security came, Karma HERNANDEZ, and [facility] nursing forest fire specialist supervisor, Janene were informed. [facility] nursing forest fire specialist supervisor came to ER and received the verbal report from nurse and spoke to the pt. Pt was provided involved nursing staff and nursing forest fire specialist supervisor's names.
--- NOTE | 2018-09-26 12:56 | Diagnostic Imaging Report ---
Indication: Dyspnea Comparison: None A single view chest radiograph was obtained. Findings: Cardiomediastinal appearance is within normal limits for age. The lungs are clear. Pulmonary vascularity is appropriate. The diaphragmatic contour is smooth and costophrenic angles are sharp. No pleural effusions are identified. The bones are unremarkable. Impression: No acute findings
--- NOTE | 2018-09-27 16:31 | Cardiology Report ---
APPROVED REPORT EKG Measurement Heart [id number] Normal sinus rhythm Low voltage QRS Borderline ECG
== END 2018-09-26 11:20 | disposition home or self-care (01) ==
LOC: EMR 08:24
DX: M79.602 Pain in left arm (principal); R20.2 Paresthesia of skin; M54.12 Radiculopathy, cervical region; Z91.013 Allergy to seafood; I25.2 Old myocardial infarction; I25.10 Atherosclerotic heart disease of native coronary artery without angina pectoris; K21.9 Gastro-esophageal reflux disease without esophagitis; J44.9 Chronic obstructive pulmonary disease, unspecified
CPT/HCPCS: 36415; 70450; 71045; 80053; 80307; 82550; 82553; 84484; 85025; 93005; 99284; S0028

== ENCOUNTER 2018-11-22 22:51 | Emergency (ER) | payer OTHER ==
[~2018-11-22] VITALS: Ht 162.6 cm; Wt 99.8 kg
[~2018-11-22 22:51] MED LIST changes: +ACETAMINOPHEN-1 EAC1 ORAL; +ASPIR 8181 MG ORAL; +GABAPENTIN600 MG ORAL; +LIDODERM700 M1 TOPIC; +SERTRALINE HCL50 MG ORAL
[2018-11-22] MEDS ORDERED: UNOBMED (22:58)
--- NOTE | 2018-11-22 23:01 | NUR ---
ED Nurse Note: Patient presents with complaints of lower back pain x 3 hours, 10/10 on the pain scale.
[2018-11-22 23:03] VITALS: BP 113/72
--- NOTE | 2018-11-22 23:07 | NUR ---
ED Nurse Note: Patient is screaming in pain, will inform ERMD.
[2018-11-22] MEDS ORDERED: Methocarbamol 750mg tab ORAL ONE (23:30)
[2018-11-22] MEDS ORDERED: Ketorolac 60mg Inj IM ONE (23:30)
--- NOTE | 2018-11-22 23:39 | Emergency Room Report ---
History of Present Illness General Chief Complaint: Lower Back Pain or Injury Source: Patient Present Illness HPI Patient presents with complaints of left lower back pain Patient cannot give a clear specific moment however he said in a twisting motion is when the pain started earlier today Denies any other fall or trauma Denies any focal weakness patient reports that the pain is worsened with walking denies any loss of control of bowel or urination denies any chest pain or shortness of breath Patient has chronic shoulder discomfort However no change regarding the shoulder The pain in the left lower back area stays fairly localized some minimal radiation towards the buttock area Allergies: Coded Allergies: SHELLFISH DERIVED (Verified Allergy, Unknown, 11/10/16) Patient History Past Medical History: see triage record Pertinent Family History: none Last Menstrual Period: GISELLE Now: No Reviewed Nursing Documentation: PMH: Agreed; PSxH: Agreed Nursing Documentation-PMH Past Medical History: No History, Except For Hx Cardiac Problems: Yes - [place] JUN 2016 Hx Hypertension: No Hx Pacemaker: No Hx Asthma: Yes Hx COPD: Yes Hx Diabetes: No Hx Cancer: No Hx Dialysis: No Hx Neurological Problems: No Hx Cerebrovascular Accident: No Hx Seizures: No Review of Systems All Other Systems: negative except mentioned in HPI Physical Exam Vital Signs Date Time Temp Pulse Resp B/P (MAP) Pulse Ox O2 Delivery O2 Flow Rate FiO2 11/22/18 22:55 97.5 73 18 113/72 94 Room Air Sp02 EP Interpretation: reviewed, normal General Appearance: well appearing, no apparent distress Head: normocephalic, atraumatic Eyes: bilateral eye PERRL, bilateral eye EOMI ENT: hearing grossly normal Neck: supple Respiratory: lungs clear, no respiratory distress, no retraction Cardiovascular #1: regular rate, rhythm Musculoskeletal: other - Some reproducible discomfort left posterior superior iliac crest, no midline step-offs Neurologic: alert, oriented x3 Skin: normal color, no rash Lymphatic: no adenopathy Medical Decision Making Diagnostic Impression: Primary Impression: Back pain Additional Impressions: Low back pain Sciatic nerve pain ER Course Given the patient's history exam and presentation multiple differentials are consideration Including but not limited to sciatica, neurological neurosurgical emergencies patient's location of the pain and examination is consistent with likely sciatic irritation Patient has required opiate medications in September and October She reports that these are for her shoulder Given the lack of any acute trauma further imaging was not obtained Patient is encouraged to follow closely with her primary physician and return with any changes Last Vital Signs Date Time Temp Pulse Resp B/P (MAP) Pulse Ox O2 Delivery O2 Flow Rate FiO2 11/22/18 23:03 97.5 79 18 113/72 94 Room Air Status: improved Disposition: HOME, SELF-CARE Condition: Improved Scripts Methylprednisolone (Methylprednisolone*) 4MG Dspk 4 MG ORAL DIRECTED for 6 Days, #21 EA 0 Refills Day 1: Two tablets before breakfast, one after lunch, one after dinner, and two at bedtime. If started late in the day, take all six tablets at once or divide into two or three doses, unless otherwise directed by prescriber. Day 2: One tablet before breakfast, one after lunch, one after dinner, and two at bedtime Day 3: One tablet before breakfast, one after lunch, one after dinner, and one at bedtime Day 4: One tablet before breakfast, one after lunch, and one at bedtime Day 5: One tablet before breakfast and one at bedtime Day 6: One tablet before breakfast Prov: Kevin Patel DO 11/22/18 Ibuprofen* (MOTRIN*) 600 Mg Tablet 600 MG ORAL Q8H PRN for For Pain, #20 TAB 0 Refills Prov: Kevin Patel DO 11/22/18 Methocarbamol* (ROBAXIN-750*) 750 Mg Tablet 750 MG PO TID, #21 TAB 0 Refills Prov: Kevin Patel DO 11/22/18 Referrals: OKSANA VOSS,REFERRING (PCP) Additional Instructions: Patient is provided with the discharge instructions notified to follow up with primary doctor in the next 2-3 days otherwise return to the er with any worsening symptoms. Please note that this report is being documented using [employer] technology. This can lead to erroneous entry secondary to incorrect interpretation by the dictating instrument. Kevin Patel DO Nov 22, 2018 23:39
[2018-11-22] MEDS ORDERED: MEDROL DOSEPAK4 MG ORAL (23:51)
[2018-11-22] MEDS ORDERED: ROBAXIN-750750 MG PO (23:51)
[2018-11-22] MEDS ORDERED: IBUPROFEN600 MG ORAL (23:51)
--- NOTE | 2018-11-23 00:01 | NUR ---
ED Nurse Note: Patient discharged in stable condition, patient ambulatory with steady gait, accompanied by family member upon departure patient left with all belongings. Patient verbalized understanding of discharge instructions.
[2018-11-23 00:03] VITALS: BP 113/72
== END 2018-11-23 00:04 | disposition home or self-care (01) ==
LOC: EMR 23:14
DX: M54.5 Low back pain (principal); M54.40 Lumbago with sciatica, unspecified side; J44.9 Chronic obstructive pulmonary disease, unspecified; I25.2 Old myocardial infarction
CPT/HCPCS: 96372; 99283